=== PATIENT | male | born 1995 | race Caucasian/White ===

== ENCOUNTER 2016-10-16 20:47 | Emergency (ER) | payer BC, OTHER ==
[~2016-10-16] VITALS: Ht 170.2 cm; Wt 61.5 kg
[2016-10-16 22:02] VITALS: Ht 170.2 cm; Wt 61.5 kg
[2016-10-16] MEDS ORDERED: DIPHENHYDRAMINE 25 MG CAP PO ONE (23:00)
[2016-10-16] MEDS ORDERED: predniSONE 20 MG TAB PO ONE (23:00)
[2016-10-16] MEDS ORDERED: FAMOTIDINE 20 MG TAB PO ONE (23:00)
[2016-10-16] MEDS ORDERED: PRED20TA PO (23:20)
[2016-10-16] MEDS ORDERED: BEN25 PO (23:21)
--- NOTE | 2016-10-16 23:25 | ERD ---
ER Documentation Chief Complaint Date/Time DATE: 10/16/16 TIME: 23:23 Chief Complaint Eye irritation. Itchy throat and nasal congestion HPI This is a 21-year-old male presents to the ER for itchy watery eyes and bilateral eye irritation with runny nose. Patient states he went outside to play basketball and that he started sneezing after a little bit. Patient denies any chest pain or shortness of breath. He denies any lip or tongue swelling. Patient has all the vaccines. ROS 12 point review of systems was done, all negative except per HPI. Medications Home Meds Active Scripts Diphenhydramine Hcl* (Benadryl*) 25 Mg Cap, 25 MG PO Q6, #30 CAP Prov:GUILHERME SMITH C 10/16/16 Prednisone* (Prednisone*) 20 Mg Tab, 40 MG PO DAILY for 4 Days, TAB Prov:GUILHERME SMITH C 10/16/16 Allergies Allergies: Coded Allergies: No Known Allergy (Unverified , 07/20/13) PMhx/Soc Medical and Surgical Hx: pt denies Medical Hx, pt denies Surgical Hx Hx Alcohol Use: Yes (SOCIALLY) Hx Substance Use: Yes (MARIJUANA) Hx Tobacco Use: No Smoking Status: Current every day smoker Physical Exam Vitals Vital Signs Date Time Temp Pulse Resp B/P Pulse Ox O2 Delivery O2 Flow Rate FiO2 10/16/16 22:02 98.6 75 18 144/86 100 Physical Exam GENERAL: The patient is well-developed, well-nourished, in no acute distress. NECK: Cervical spine is non tender with no step off. Supple, no nuchal rigidity HEENT: Atraumatic. Pupils equal, round and reactive to light. Extraocular muscles are grossly intact. Conjunctivae pink, no discharge. Bilateral tympanic membranes are clear with no evidence of erythema, effusion or dulling of the light reflex. No swelling, no tongue swelling. No uvular deviation no kissing tonsils. RESPIRATORY: Clear to auscultation bilaterally. There are no rales, wheezes or rhonchi. HEART: Regular rate and rhythm. No murmurs, clicks, rubs or gallops. EXTREMITIES: No clubbing or cyanosis. Full range of motion. Grossly neurovascularly intact. NEUROLOGIC: Alert and oriented. Cranial nerves II through XII are intact. SKIN: There is no rash. The skin is warm and dry. Results 24 hrs Current Medications Medications (Trade) Dose Ordered Sig/Joaquín Route PRN Reason Start Time Stop Time Status Last Admin Dose Admin Diphenhydramine HCl (Benadryl) 25 mg ONCE ONCE PO 10/16/16 23:00 10/16/16 23:01 DC 10/16/16 22:51 Famotidine (Pepcid) 20 mg ONCE ONCE PO 10/16/16 23:00 10/16/16 23:01 DC 10/16/16 22:51 Prednisone (Prednisone) 60 mg ONCE ONCE PO 10/16/16 23:00 10/16/16 23:01 DC 10/16/16 22:51 Procedures/MDM This is a 21-year-old male presents to the ER with itchy throat, eye irritation and sneezing. This happened immediately after he went outside to play basketball. This is likely an allergic reaction. Patient was given steroids, Benadryl, famotidine here in the ER. He was not any respiratory distress. There is no evidence of angioedema. His vital signs are stable. He is not hypoxic. Patient is stable for outpatient therapy. He will be sent home with Benadryl prednisone and Claritin. Patient is to follow-up with his primary care doctor within 1-2 days or return to ER sooner if symptoms worsen. My medical decision making was shared with the patient he understands and agrees with plan. Departure Diagnosis: Primary Impression: Allergic reaction Condition: Stable Patient Instructions: First Aid: Allergic Reactions Additional Instructions: Call your primary care doctor TOMORROW for an appointment during the next 1-2 days.See the doctor sooner or return here if your condition worsens before your appointment time. GUILHERME SMITH Oct 16, 2016 23:25
[2016-10-16 23:38] VITALS: BP 137/75; PULSE 76; RESP 18; TEMP 97.8
== END 2016-10-16 23:38 | disposition home or self-care (01) ==
LOC: FTE 20:47
DX: H57.8 Other specified disorders of eye and adnexa (principal); F17.210 Nicotine dependence, cigarettes, uncomplicated
CPT/HCPCS: J7512; Z7502; Z7610; 99283